=== PATIENT | female | born 1940 | race Two or more races ===

== ENCOUNTER 2019-09-23 15:40 | Emergency (ER) | payer MEDICARE, OTHER ==
[~2019-09-23] VITALS: Ht 144.8 cm; Wt 68.5 kg
[2019-09-23] MEDS ORDERED: KETOROLAC TROMETHAMINE 15 MG/ML VIAL ONE (16:55)
[2019-09-23] MEDS ORDERED: ONDANSETRON HCL/PF 4 MG/2 ML VIAL ONE (16:55)
[2019-09-23] MEDS: KETOROLAC TROMETHAMINE INJ 30 MG/ML VIAL IV ONE (17:10)
[2019-09-23] MEDS: ONDANSETRON HCL/PF 4 MG/2 ML VIAL IVP ONE (17:10)
[2019-09-23] MEDS: IV NS 0.9% 1,000 ML BAG IV ONE (17:10)
--- NOTE | 2019-09-23 17:11 | NUR ---
BIB son-started complaining of backpain today. Hx of kidney stones similar. PT AAOX4, VSS. RR EVEN & UNLABORED. DENIES CP, SOB, DIZZINESS, N/V/D AT THIS TIME. PT SEEN & EVAL'D BY DR. QUICK. SON @ BS ASSISTING WITH TRANSLATION. MEDICATED ORDERED PER ERMD ORDER, PT TAZ WELL. WILL CONT TO MONITOR.
[2019-09-23 17:34] LABS: CREATININE 1.2 mg/dL (0.6-1.3); POTASSIUM 4.4 mmol/L (3.5-5.1)
[2019-09-23 17:40] LABS: ALBUMIN 3.4 g/dL (3.4-5.0); BILIRUBIN,DIRECT 0.1 mg/dL (0.0-0.2); BILIRUBIN,TOTAL 0.3 mg/dL (0.2-1.0); TOTAL PROTEIN, SERUM 6.7 g/dL (6.4-8.2)
[2019-09-23 17:59] LABS: BASOPHILS # (AUTO) 0.1 /CMM (0.0-0.2); BASOPHILS % (AUTO) 0.9 % (0.0-2.0); EOSINOPHILS % (AUTO) 1.2 % (0.0-6.0); HEMATOCRIT 37 % (33-45); LYMPHOCYTES # (AUTO) 0.8 /CMM (0.8-4.8); LYMPHOCYTES % (AUTO) 8.7 % (20.0-44.0); MEAN CORPUSCULAR HGB CONC 32 g/dl (31.0-36.0); MEAN CORPUSCULAR VOLUME 92 fL (82-100); MONOCYTES # (AUTO) 0.4 /CMM (0.1-1.30); MONOCYTES % (AUTO) 4.2 % (2.0-12.0); NEUTROPHILS # (AUTO) 7.7 /CMM (1.8-8.9); PLATELET COUNT (AUTO) 155 /CMM (150-450); RED BLOOD CELL COUNT(AUTO) 4.07 MIL/uL (4.0-5.2)
[2019-09-23 19:10] LABS: APPEARANCE,URINE Clear (CLEAR); BILIRUBIN,URINE Negative (NEGATIVE); BLOOD, URINE Large Ery/uL (NEGATIVE); COLOR,URINE Yellow (YELLOW); KETONES,URINE Negative (NEGATIVE); LEUKOCYTE ESTERASE ,URINE Negative (NEGATIVE); NITRITE, URINE Negative (NEGATIVE); PH,URINE 5.5 (5.0-8.0); PROTEIN,URINE 30 mg/dl (NEGATIVE); UGLUCOSE Negative (NEGATIVE); UROBILINOGEN,URINE 0.2 EU/dL (0.2)
[2019-09-23 19:36] LABS: BACTERIA,URINE Few /HPF (None Seen); RBC,URINE 21-50 /HPF (0-2); SQUAMOUS EPITHELIAL CELL,UR Few /HPF (None Seen); WBC,URINE 0-2 /HPF (0-3)
--- NOTE | 2019-09-23 20:16 | NUR ---
PT ACCOMPANIED BY SON UPON LEAVING ED.
--- NOTE | 2019-09-23 20:16 | NUR ---
Patient discharged to home in stable condition. Written and verbal after care instructions given. Patient verbalizes understanding of instruction. IV removed. Catheter intact and site benign. Pressure and 4x4 applied to site. No bleeding noted.
[2019-09-23 20:19] VITALS: BP 132/65
== END 2019-09-23 20:21 | disposition home or self-care (01) ==
LOC: ER 15:45
DX: N13.2 Hydronephrosis with renal and ureteral calculous obstruction (principal); I10 Essential (primary) hypertension; Z87.442 Personal history of urinary calculi
CPT/HCPCS: 36415; 74176; 80048; 80076; 81001; 83690; 85025; 96361; 96374; 96375; 99284; J1885; J2405; J7030; 81000-TC

== ENCOUNTER 2022-05-01 17:57 | Emergency (ER) | payer MEDICARE, OTHER ==
[~2022-05-01] VITALS: Ht 149.9 cm; Wt 66.7 kg
--- NOTE | 2022-05-01 18:52 | NUR ---
bank cashier at bedside
--- NOTE | 2022-05-01 18:58 | NUR ---
iv present on arrival. L Hand 20G
--- NOTE | 2022-05-01 19:21 | NUR ---
report given to cristofer for dilshad
--- NOTE | 2022-05-01 19:53 | NUR ---
Pt back from CT scan. son on bedside.
[2022-05-01 20:03] LABS: CARBON DIOXIDE 24 mmol/L (21-32); CHLORIDE 104 mmol/L (98-107); CREATININE 1.3 mg/dL (0.6-1.3); GLUCOSE 126 mg/dL (74-106); POTASSIUM 4.8 mmol/L (3.5-5.1); SODIUM SERUM 137 mmol/L (136-145); UREA NITROGEN, BLOOD 25 mg/dL (7-18)
[2022-05-01 20:06] LABS: BASOPHILS % (AUTO) 0.3 % (0.0-2.0); EOSINOPHILS % (AUTO) 1.2 % (0.0-6.0); HEMATOCRIT 37 % (33-45); HEMOGLOBIN 11.9 g/dL (11.5-14.8); LYMPHOCYTES # (AUTO) 0.9 K/uL (0.8-4.8); LYMPHOCYTES % (AUTO) 8.3 % (20.0-44.0); MEAN CORPUSCULAR HGB CONC 32 g/dl (31.0-36.0); MEAN CORPUSCULAR VOLUME 90 fL (82-100); MONOCYTES # (AUTO) 0.5 K/uL (0.1-1.30); NEUTROPHILS % (AUTO) 85.2 % (43.0-81.0); PLATELET COUNT (AUTO) 133 K/uL (150-450); RED BLOOD CELL COUNT(AUTO) 4.13 MIL/uL (4.0-5.2); WHITE BLOOD COUNT (AUTO) 10.5 K/uL (4.3-11.0)
[2022-05-01] MEDS ORDERED: ACETAMINOPHEN ES 500 MG TABLET ONE (20:29)
[2022-05-01 20:38] VITALS: BP 113/52
--- NOTE | 2022-05-01 20:39 | NUR ---
Patient discharged to home in stable condition. Written and verbal after care instructions given. Patient verbalizes understanding of instruction.IV removed. Catheter intact and site benign. Pressure and 4x4 applied to site. No bleeding noted.
== END 2022-05-01 20:38 | disposition home or self-care (01) ==
LOC: ER 18:10
DX: S00.03XA Contusion of scalp, initial encounter (principal); R11.2 Nausea with vomiting, unspecified; R51.9 Headache, unspecified; R41.82 Altered mental status, unspecified; I10 Essential (primary) hypertension; Z87.442 Personal history of urinary calculi; W18.12XA Fall from or off toilet with subsequent striking against object, initial encounter; Y93.89 Activity, other specified; Y92.89 Other specified places as the place of occurrence of the external cause; Y99.8 Other external cause status
CPT/HCPCS: 36415; 70450-TC; 72125-TC; 80048-TC; 85025-TC